=== PATIENT | male | born 1950 | race Caucasian/White ===

== ENCOUNTER → 2018-03-17 | Outpatient (CLI) | payer OTHER, SELFPAY ==
[~2018-03-17] MED LIST: ACEDIPPM; AMLO5 PO; ASPI81CH PO; Bactrim Ds Tab1 EACH PO; CEPH500 PO; IBUP200; MULTCH; OMEP10ER; ONDA4ODT MM; OXYACE5T PO; RXOXYACE PO; TERA5 PO
== END | disposition home or self-care (01) ==
LOC: LAB SHORT 11:20 → PLD 11:20
DX: L72.9 Follicular cyst of the skin and subcutaneous tissue, unspecified (principal); L57.0 Actinic keratosis
CPT/HCPCS: 88305

== ENCOUNTER 2019-09-22 11:58 | Day surgery (SDC) | payer OTHER, SELFPAY ==
[~2019-09-22] VITALS: Ht 180.3 cm; Wt 96.8 kg
[~2019-09-22 11:58] MED LIST changes: +CYCL10 PO; +SOLI5 PO; +TAMS.4ER PO
== END 2019-09-22 13:37 | disposition home or self-care (01) ==
LOC: ORSCSDS 11:58
PROVIDERS: Surgery
PROC: 0DBL8ZX Excision of Transverse Colon, Via Natural or Artificial Opening Endoscopic, Diagnostic (ICD-10-PCS; principal; 2019-09-22 13:00)
PROC: 0DBN8ZX Excision of Sigmoid Colon, Via Natural or Artificial Opening Endoscopic, Diagnostic (ICD-10-PCS; principal; 2019-09-22 13:00)
DX: R19.4 Change in bowel habit (principal); D12.3 Benign neoplasm of transverse colon; D12.5 Benign neoplasm of sigmoid colon; I10 Essential (primary) hypertension; E78.00 Pure hypercholesterolemia, unspecified; E66.9 Obesity, unspecified; Z87.891 Personal history of nicotine dependence; Z68.33 Body mass index [BMI] 33.0-33.9, adult; Z79.899 Other long term (current) drug therapy; Z79.82 Long term (current) use of aspirin
CPT/HCPCS: 88305; J2704; J7120

== ENCOUNTER 2020-01-16 19:19 | Emergency (ER) | payer MEDICARE, OTHER ==
[~2020-01-16] VITALS: Ht 180.3 cm; Wt 102.1 kg
[2020-01-16 19:50] LABS: BASOPHILS ABSOLUTE AUTO 0.07 K/mm3 (0.00-0.23); BASOPHILS PERCENT AUTO 1 % (0-2); EOSINOPHILS ABSOLUTE AUTO 0.34 K/mm3 (0.00-0.68); EOSINOPHILS PERCENT AUTO 5 % (0-6); Hematocrit 45.1 % (37.0-53.0); Hemoglobin 15.7 g/dL (13.5-17.5); IMMATURE GRAN ABSOLUTE AUTO 0.02 K/mm3 (0.00-0.10); IMMATURE GRAN PERCENT AUTO 0 % (0-1); LYMPHOCYTES ABSOLUTE AUTO 1.68 K/mm3 (0.84-5.20); LYMPHOCYTES PERCENT AUTO 23 % (21-46); MONOCYTES ABSOLUTE AUTO 0.77 K/mm3 (0.16-1.47); MONOCYTES PERCENT AUTO 11 % (4-13); Mean Corpuscular HGB 31.5 pg (26.0-34.0); Mean Corpuscular HGB Conc 34.8 g/dL (31.5-36.5); Mean Corpuscular Volume 90 fL (80-100); Mean Platelet Volume 10.5 fL (9.1-12.4); NEUTROPHILS PERCENT AUTO 60 % (41-73); Platelet Count 212 K/mm3 (150-400); RDW Coefficient Variation 12.6 % (11.7-14.2); RDW Standard Deviation 41.4 fL (35.1-46.3); Red Blood Cell Count 4.99 M/mm3 (4.30-5.90); White Blood Cell Count 7.28 K/mm3 (4.00-11.30)
[2020-01-16 20:10] LABS: Alanine Aminotransfer (ALT/SGP 27 U/L (12-78); Albumin, Blood 3.7 g/dL (3.4-5.0); Albumin/Globulin Ratio 1.1 (0.8-1.8); Alk Phos 100 U/L (50-136); Anion Gap 5 mmol/L (6-16); Aspartate Aminotrans (AST/SGOT 24 U/L (12-37); Bilirubin, Total 0.5 mg/dL (0.1-1.0); Blood Urea Nitrogen 15 mg/dL (8-24); Bun/Creatinine Ratio 15.9 (12.0-20.0); CO2, Blood 31 mmol/L (21-32); Calcium, Blood 9.3 mg/dL (8.5-10.1); Chloride, Blood 111 mmol/L (98-108); Creatinine, Blood 0.95 mg/dL (0.60-1.20); Globulin, Blood 3.4 g/dL (2.2-4.0); Glomerular Filtration Rate >60 (60-); Glucose, Blood 120 mg/dL (70-99); Potassium, Blood 3.5 mmol/L (3.5-5.5); Sodium, Blood 147 mmol/L (136-145); Total Protein, Blood 7.1 g/dL (6.4-8.2)
[2020-01-16 20:59] LABS: Source, Urine Clean Catch
[2020-01-16 21:03] LABS: Bilirubin, Urine Neg (Neg); Blood, Urine 5+ (Neg); Glucose Qualitative, Urine Neg (Neg); Ketones, Urine Neg (Neg); Leukocyte Esterase, Urine 3+ (Neg); Nitrite, Urine Neg (Neg); Protein, Urine 3+ (Neg); Specific Gravity, Urine 1.015 (1.003-1.022); Urobilinogen, Urine NORM (Normal)
[2020-01-16 21:12] LABS: Appearance, Urine Cloudy (Clear); Color, Urine Amber (P-Yellow)
[2020-01-16 21:15] LABS: Amorphous Light (0-Heavy); Bacteria Mod /hpf; Red Blood Cells, Urine TNTC /hpf (0-2); Squamous Epithelial Cells Rare /hpf (Few)
[2020-01-16] MEDS ORDERED: XARELTO20 MG PO (21:35)
[2020-01-16] MEDS ORDERED: CEFP200 PO (21:50)
== END 2020-01-16 22:21 | disposition home or self-care (01) ==
LOC: ER 19:19
PROVIDERS: Emergency Medicine
DX: N39.0 Urinary tract infection, site not specified (principal); I10 Essential (primary) hypertension; Z79.01 Long term (current) use of anticoagulants; Z79.899 Other long term (current) drug therapy; Z87.891 Personal history of nicotine dependence
CPT/HCPCS: 36415; 80053; 81001; 85025; 87086; 99283; A9270-GY

== ENCOUNTER 2020-05-26 09:02 | Day surgery (SDC) | payer MEDICARE, OTHER ==
[~2020-05-26] VITALS: Ht 188 cm; Wt 101.0 kg
[~2020-05-26 09:02] MED LIST changes: +CEFP200 PO; +CYAN500 PO; +IBUP200 PO; +MIRALAX17 GM PO; +PANT40 PO; +SUCR1 PO; +VITAMIN D325 MC3 PO; +XARELTO20 MG PO
--- NOTE | 2020-05-26 10:45 | NUR ---
05/26/20 1045 Renetta Connor S PT. WITH FREQUENT PVC'S IN PREOP, DR. PARIKH. PT. WITH BIGEMENY PVC'S WHEN BROUGHT INTO ENDO FOR PROCEDURE. DR. PARIKH. NO ORDERS.
--- NOTE | 2020-05-26 11:54 | NUR ---
05/26/20 1154 Renetta Connor IV CHARTED DISCONTINUED AT 1030 BUT WAS DISCONTINUED AT 1130.
== END 2020-05-26 11:35 | disposition home or self-care (01) ==
LOC: ORSCSDS 09:02
PROVIDERS: Surgery
PROC: 0DB78ZX Excision of Stomach, Pylorus, Via Natural or Artificial Opening Endoscopic, Diagnostic (ICD-10-PCS; principal; 2020-05-26 10:30)
PROC: 0DB48ZX Excision of Esophagogastric Junction, Via Natural or Artificial Opening Endoscopic, Diagnostic (ICD-10-PCS; principal; 2020-05-26 10:30)
DX: K20.90 Esophagitis, unspecified without bleeding (principal); K22.70 Barrett's esophagus without dysplasia; K29.70 Gastritis, unspecified, without bleeding; K21.9 Gastro-esophageal reflux disease without esophagitis; I10 Essential (primary) hypertension; Z87.891 Personal history of nicotine dependence; Z86.718 Personal history of other venous thrombosis and embolism; E78.00 Pure hypercholesterolemia, unspecified; Z79.82 Long term (current) use of aspirin; Z79.899 Other long term (current) drug therapy
CPT/HCPCS: 88305; 88342; J2704; J7120

== ENCOUNTER → 2021-04-21 | Outpatient (CLI) | payer MEDICARE, OTHER | LOC: LAB SHORT 12:00 | DX: R82.998 Other abnormal findings in urine (principal); R31.9 Hematuria, unspecified | CPT/HCPCS: 87086 ==

== ENCOUNTER → 2021-11-30 | Outpatient (CLI) | payer MEDICARE, OTHER | END | disposition home or self-care (01) | LOC: PLD 14:42 → LAB SHORT 14:42 | DX: R31.9 Hematuria, unspecified (principal); R30.0 Dysuria | CPT/HCPCS: 87077; 87086; 87186 ==

== ENCOUNTER → 2022-04-12 | Outpatient (CLI) | payer MEDICARE, OTHER | END | disposition home or self-care (01) | LOC: LAB SHORT 06:10 → LAB FUT 02-23 16:20 | DX: N20.0 Calculus of kidney (principal) | CPT/HCPCS: 81050 ==

== ENCOUNTER → 2022-07-10 | Outpatient (CLI) | payer MEDICARE, OTHER | END | disposition home or self-care (01) | LOC: LAB 11:45 → LAB SHORT 11:45 → LAB FUT 05-10 10:05 → EDSTATUS 05-10 10:05 | DX: N20.0 Calculus of kidney (principal) | CPT/HCPCS: 81050 ==

== ENCOUNTER → 2022-11-21 | Outpatient (CLI) | payer MEDICARE, OTHER | LOC: LAB SHORT 10:12 → LAB 10:12 | DX: R31.9 Hematuria, unspecified (principal); R30.0 Dysuria | CPT/HCPCS: 87077; 87086; 87186 ==

== ENCOUNTER → 2022-12-05 | Outpatient (CLI) | payer MEDICARE, OTHER | END | disposition home or self-care (01) | LOC: LAB SHORT 13:25 → LAB 13:25 | DX: N39.0 Urinary tract infection, site not specified (principal) | CPT/HCPCS: 87086 ==

== ENCOUNTER 2023-08-26 08:49 | Day surgery (SDC) | payer MEDICARE, OTHER ==
[~2023-08-26] VITALS: Ht 180.3 cm; Wt 111.6 kg
[2023-08-26] VITALS (8 sets, daily range): BP systolic 137–182; BP diastolic 82–130
[2023-08-26] MEDS ORDERED: METO25ER PO (09:24)
[2023-08-26] MEDS ORDERED: Nitrostat0.3 MG SL (09:25)
[2023-08-26] MEDS ORDERED: FURO40 PO (09:25)
[2023-08-26] MEDS ORDERED: FARXIGA5 MG PO (09:26)
[2023-08-26] MEDS ORDERED: NAPR500 PO (09:29)
[2023-08-26] MEDS ORDERED: Verapamil HCL 2.5 MG/ML 2ML Injection ONE (09:58)
[2023-08-26] MEDS ORDERED: Heparin Sodium 1000 Units/ML 10ML MDV ONE ×2 (09:58→10:37)
[2023-08-26] MEDS ORDERED: NS 250 ML IV ONE (09:58)
[2023-08-26] MEDS ORDERED: Nitroglycerin 2 MG/20 ML BTL ONE (09:58)
[2023-08-26] MEDS ORDERED: NS 1,000 ML IV ONE ×2 (09:58→10:03)
[2023-08-26] MEDS ORDERED: FentaNYL Citrate 50 MCG/ML 2 ML Injection ONE (10:02)
[2023-08-26] MEDS ORDERED: Midazolam HCl 1MG / ML 2ML Vial ONE (10:02)
[2023-08-26] MEDS ORDERED: POTCHL20ER PO (10:34)
--- NOTE | 2023-08-26 11:27 | NUR ---
DR SHAY IN ROOM DISCUSSING PLAN OF CARE
--- NOTE | 2023-08-26 13:30 | NUR ---
PT AMBULATES TO RESTROOM AND BACK WITHOUT DIFF. PT DRESSES SELF WITHOUT DIFF. PT IV DC'D. CATH INTACT. PRESSURE DSG APPLIED. PT VERBALIZES UNDERSTANDING WRITTEN AND VERBAL INSTRUCTIONS. DENIES QUESTIONS. PT TR BAND REMOVED FROM R RADIAL/ULNAR. NO BLEEDING OR HEMATOMA NOTED. DOT DRESSING/ SPLINT APPLIED. PT DC TO HOME VIA WC BY VOLUNTEER.
== END 2023-08-26 13:30 | disposition home or self-care (01) ==
LOC: MHTC 08:49
DX: I11.0 Hypertensive heart disease with heart failure (principal); I50.20 Unspecified systolic (congestive) heart failure; I82.419 Acute embolism and thrombosis of unspecified femoral vein; I82.432 Acute embolism and thrombosis of left popliteal vein; R07.89 Other chest pain; I26.99 Other pulmonary embolism without acute cor pulmonale; E78.5 Hyperlipidemia, unspecified; Z87.891 Personal history of nicotine dependence; Z79.899 Other long term (current) drug therapy; E87.6 Hypokalemia
CPT/HCPCS: 36415; 76937; 80048; 93246; 93454; 99152; 99153; C1769; C1894; J1644; J2250; J3010; J7030; J7050; Q9967

== ENCOUNTER 2024-07-14 13:25 | Day surgery (SDC) | payer MEDICARE, OTHER ==
[~2024-07-14] VITALS: Ht 180.3 cm; Wt 101.7 kg
[2024-07-14 16:41] VITALS: BP 153/80
== END 2024-07-14 16:50 | disposition home or self-care (01) ==
LOC: ORSCSDS 13:25
PROC: 0DBK8ZX Excision of Ascending Colon, Via Natural or Artificial Opening Endoscopic, Diagnostic (ICD-10-PCS; principal; 2024-07-14)
PROC: 0DBL8ZX Excision of Transverse Colon, Via Natural or Artificial Opening Endoscopic, Diagnostic (ICD-10-PCS; principal; 2024-07-14)
PROC: 0DB78ZX Excision of Stomach, Pylorus, Via Natural or Artificial Opening Endoscopic, Diagnostic (ICD-10-PCS; principal; 2024-07-14)
PROC: 0DB48ZX Excision of Esophagogastric Junction, Via Natural or Artificial Opening Endoscopic, Diagnostic (ICD-10-PCS; principal; 2024-07-14)
PROC: 0DBP8ZX Excision of Rectum, Via Natural or Artificial Opening Endoscopic, Diagnostic (ICD-10-PCS; principal; 2024-07-14)
DX: K22.70 Barrett's esophagus without dysplasia (principal); Z12.11 Encounter for screening for malignant neoplasm of colon; Z86.0101 Personal history of adenomatous and serrated colon polyps; D12.2 Benign neoplasm of ascending colon; K21.00 Gastro-esophageal reflux disease with esophagitis, without bleeding; D12.8 Benign neoplasm of rectum; K63.5 Polyp of colon; K29.70 Gastritis, unspecified, without bleeding; K57.30 Diverticulosis of large intestine without perforation or abscess without bleeding; I10 Essential (primary) hypertension; I25.10 Atherosclerotic heart disease of native coronary artery without angina pectoris; Z79.899 Other long term (current) drug therapy